=== PATIENT | female | born 1965 | race Caucasian/White ===

== ENCOUNTER → 2023-11-07 06:58 | Outpatient (REF) | payer OTHER, SELFPAY | LOC: HWRAD 06:58 | PROVIDERS: ATTENDING PHYSICIAN Family Medicine; REFERRING PHYSICIAN Internal Medicine Gastroenterology | DX: R79.89 Other specified abnormal findings of blood chemistry (principal) | CPT/HCPCS: 76700 ==

== ENCOUNTER → 2024-02-06 06:16 | Day surgery (SDC) | payer OTHER, SELFPAY | LOC: GI 06:16 | PROVIDERS: ATTENDING PHYSICIAN Internal Medicine Gastroenterology; FAMILY PHYSICIAN Family Medicine | DX: R12 Heartburn (principal); I85.00 Esophageal varices without bleeding; K31.7 Polyp of stomach and duodenum; K76.6 Portal hypertension; K31.89 Other diseases of stomach and duodenum; Z13.810 Encounter for screening for upper gastrointestinal disorder | CPT/HCPCS: 43239; 88305 ==

== ENCOUNTER 2024-05-12 15:44 | Observation (INO) | payer OTHER, SELFPAY ==
[2024-05-12 12:07] VITALS: BP 136/78
--- NOTE | 2024-05-12 12:11 | ED.GENMED ---
ED Provider Triage
<Antoine Joe PA-C - Last Filed: 05/12/24 12:12>
-
Patient seen by provider in Triage?: Seen in Triage
Attestation: A medical screening examination has been initiated by a qualified medical provider. Based on the assessment performed at this time, it has been determined that an emergent medical condition may exist and the patient has been informed
that further medical evaluation and possible additional diagnostic testing may be needed.
HPI: 59 yo female presents due to jaundice and abd distention. Hx of ETOH cirrhosis, no prior hx of ascites. Last alcoholic beverage was 16d ago. No fevers or chills. Denies dark urine or anna colored stool
GENERAL: Alert , in no apparent distress
EYE: No visual abnormalities. scleral icterus noted
NECK: Trachea midline
ENT: No visible abnormalities.
LUNGS: No acute respiratory distress
ABD: Moderately distended
NEUROLOGICAL: Alert and oriented
SKIN: Skin intact. No visible changes.
MUSCULOSKELETAL: Moving extremities normally
PSYCH: Normal and appropriate interaction.
This is a medical evaluation conducted in person to initiate diagnostic evaluation and provide initial therapeutics. Please see further documentation by the treating clinician.
History of Present Illness
<Antoine Joe PA-C - Last Filed: 05/12/24 12:12>
General
Chief Complaint: Abnormal Lab Value
Time Seen by Provider: 05/12/24 13:41
<Nilesh Michel Jr., PA-C - Last Filed: 05/12/24 15:31>
General
Source: patient
Exam Limitations: none
Nursing documentation reviewed up to this point in time: agreed with
History of Present Illness
History of Present Illness:
59-year-old female presenting to the emergency department today with concerns of yellow discoloration abnormal liver function test distended abdomen worsening over the past few weeks specifically worse over the past few days. Has noticed increasing
distention to her abdomen recently. Denies nausea vomiting change in bowel movements.
Past History
<Antoine Joe PA-C - Last Filed: 05/12/24 12:12>
Past History
ED Past Medical History: Other (Hepatitis C)
ED Past Surgical History: Gynecological and Other (Cleft palate repair)
Social History
Living: with family
Review of Systems
<Nilesh Michel Jr., PA-C - Last Filed: 05/12/24 15:31>
Review of Systems
Allergies reviewed?: Yes
All Other Systems: ROS reviewed and negative except as documented in HPI and ROS
Phy Exam
<Nilesh Michel Jr., PA-C - Last Filed: 05/12/24 15:31>
Physical Exam
Physical Exam:
GENERAL: Alert , in no apparent distress
EYE: pupils equal and reactive
NECK: Supple, no significant adenopathy.
ENT: o/p clr, mmm.
CARDIAC: Regular rate and rhythm .
LUNGS: Clear breath sounds bilaterally, no acute respiratory distress, no wheezes/rales/rhonchi
ABDOMEN: Distended abdomen with vague discomfort throughout no focal pain.
NEUROLOGICAL: Alert and oriented, no focal neuro deficits
SKIN: Warm and dry, skin intact.
MUSCULOSKELETAL: No edema, well perfused.
PSYCH: Normal and appropriate interaction.
Course
<Antoine Joe PA-C - Last Filed: 05/12/24 12:12>
Orders/Labs/Results
Orders:
Orders
05/12/24 12:10
US Abdomen Complete/Upper Urgent
Comment:
Reason For Exam: abd distention, jaundice
05/12/24 12:30
Complete Blood Count/With Diff Urgent
Prothrombin Time Urgent
05/12/24 12:40
Comprehensive Metabolic Panel Urgent
Direct Bilirubin Urgent
Lipase Urgent
05/12/24 Dinner
Regular
05/12/24 15:18
Body Fluid Albumin Routine
Fluid Source: Peritoneal (Ascites)
Body Fluid Cell Count Routine
What is the Body Fluid: peritoneal fluid
Comment: post procedure
Body Fluid LDH Routine
Fluid Source: Peritoneal (Ascites)
Body Fluid Protein Routine
Fluid Source: Peritoneal (Ascites)
Fluid Culture with Gram Stain Routine
JOSIAH Source: Peritoneal Fluid
Specimen Description:
Comment: Post Procedure
IRAD Cytology Routine
Source: Peritoneal Fluid
Clinical Impression: alcoholic cirrhosis
05/12/24 15:19
IR[facility] CONSULT Routine
Consulting Provider: Loco Garcia
Was physician already notified: Yes
Reason for Consult/Procedure: Dx/Tx paracentesis
Acknowledgement that appropriate orders are entered: Yes
05/12/24 15:21
GASTROINTESTINAL CONSULT Routine
Consulting Provider: Moiz Rucker
Was physician already notified: Yes
Reason for consult: ascites
05/12/24 15:23
Code Status As Directed
Resuscitation Status: Full Code
Bisacodyl [Dulcolax] 10 mg RECTAL [id number] PRN
Docusate W/Senna [Senokot-S] 1 tablet PO BIDPRN PRN
Polyethylene Glycol Powder [Miralax] 17 grams PO DAILYPRN PRN
Neurological Checks As Directed
Frequency: q4h
05/12/24 15:24
Activity As Directed
Activity Level: With Assistance
Vital Signs As Directed
Frequency: Per unit guidelines
DX Deep Vein Thrombosis Video Routine
05/12/24 15:27
Ondansetron HCl [Zofran] 4 mg PO DAILYPRN PRN
05/12/24 15:30
estradiol [Yuvafem] 10 mcg VAGINAL TUTH
05/12/24 18:00
Enoxaparin Sodium [Lovenox] 40 mg SC QPM
05/12/24 22:00
Atenolol [Tenormin] 25 mg PO HS
Clonazepam [Klonopin] 0.25 mg PO HS
bimatoprost [Latisse] 1 drop TOPICAL HS
05/13/24 06:00
Complete Blood Count/No Diff IN AM
Comprehensive Metabolic Panel IN AM
05/13/24 08:00
psyllium husk 1.6 grams PO DAILY
rabeprazole 20 mg PO DAILY
05/14/24 06:00
Complete Blood Count/No Diff IN AM
Comprehensive Metabolic Panel IN AM
05/15/24 06:00
Complete Blood Count/No Diff IN AM
Comprehensive Metabolic Panel IN AM
Abnormal Lab Results
05/12/24 05/12/24
12:30 12:40
RBC 3.64 L 10^6/uL
(4.20-5.40)
MCV 102.5 H fL
(81.0-99.0)
MCH 34.6 H pg
(27.0-31.0)
RDW 15.0 H %
(11.5-14.5)
MPV 10.5 H fL
(7.4-10.4)
Monocytes % 10.0 H %
(1.7-9.3)
PT 19.2 H Sec
(11.4-14.6)
BUN 4 L mg/dl
(7-17)
Glucose 119 H mg/dl
(70-99)
Calcium 8.0 L mg/dl
(8.4-10.2)
Total Bilirubin 4.8 H mg/dl
(0.2-1.3)
Direct Bilirubin 2.5 H mg/dl
(0.0-0.4)
AST 156 H U/L
(14-36)
Alkaline Phosphatase 146 H U/L
(38-126)
05/12/24 12:30
05/12/24 12:40
Vital Signs
Initial and Last Documented VS:
Initial Vital Signs
Temp Pulse Resp BP Pulse Ox
98.6 F 85 16 136/78 97
05/12/24 12:07 05/12/24 12:07 05/12/24 12:07 05/12/24 12:07 05/12/24 12:07
Last Documented Vital Signs
Temp Pulse Resp BP Pulse Ox
98.6 F 85 18 136/78 97
05/12/24 12:07 05/12/24 12:07 05/12/24 14:00 05/12/24 12:07 05/12/24 12:07
<Nilesh Michel Jr., PA-C - Last Filed: 05/12/24 15:31>
Orders/Labs/Results
Orders:
Orders
05/12/24 12:10
US Abdomen Complete/Upper Urgent
Comment:
Reason For Exam: abd distention, jaundice
05/12/24 12:30
Complete Blood Count/With Diff Urgent
Prothrombin Time Urgent
05/12/24 12:40
Comprehensive Metabolic Panel Urgent
Direct Bilirubin Urgent
Lipase Urgent
05/12/24 Dinner
Regular
05/12/24 15:18
Body Fluid Albumin Routine
Fluid Source: Peritoneal (Ascites)
Body Fluid Cell Count Routine
What is the Body Fluid: peritoneal fluid
Comment: post procedure
Body Fluid LDH Routine
Fluid Source: Peritoneal (Ascites)
Body Fluid Protein Routine
Fluid Source: Peritoneal (Ascites)
Fluid Culture with Gram Stain Routine
JOSIAH Source: Peritoneal Fluid
Specimen Description:
Comment: Post Procedure
IRAD Cytology Routine
Source: Peritoneal Fluid
Clinical Impression: alcoholic cirrhosis
05/12/24 15:19
IRAD CONSULT Routine
Consulting Provider: Loco Garcia
Was physician already notified: Yes
Reason for Consult/Procedure: Dx/Tx paracentesis
Acknowledgement that appropriate orders are entered: Yes
05/12/24 15:21
GASTROINTESTINAL CONSULT Routine
Consulting Provider: Moiz Rucker
Was physician already notified: Yes
Reason for consult: ascites
05/12/24 15:23
Code Status As Directed
Resuscitation Status: Full Code
Bisacodyl [Dulcolax] 10 mg RECTAL [id number] PRN
Docusate W/Senna [Senokot-S] 1 tablet PO BIDPRN PRN
Polyethylene Glycol Powder [Miralax] 17 grams PO DAILYPRN PRN
Neurological Checks As Directed
Frequency: q4h
05/12/24 15:24
Activity As Directed
Activity Level: With Assistance
Vital Signs As Directed
Frequency: Per unit guidelines
DX Deep Vein Thrombosis Video Routine
05/12/24 15:27
Ondansetron HCl [Zofran] 4 mg PO DAILYPRN PRN
05/12/24 15:30
estradiol [Yuvafem] 10 mcg VAGINAL TUTH
05/12/24 18:00
Enoxaparin Sodium [Lovenox] 40 mg SC QPM
05/12/24 22:00
Atenolol [Tenormin] 25 mg PO HS
Clonazepam [Klonopin] 0.25 mg PO HS
bimatoprost [Latisse] 1 drop TOPICAL HS
05/13/24 06:00
Complete Blood Count/No Diff IN AM
Comprehensive Metabolic Panel IN AM
05/13/24 08:00
psyllium husk 1.6 grams PO DAILY
rabeprazole 20 mg PO DAILY
05/14/24 06:00
Complete Blood Count/No Diff IN AM
Comprehensive Metabolic Panel IN AM
05/15/24 06:00
Complete Blood Count/No Diff IN AM
Comprehensive Metabolic Panel IN AM
Abnormal Lab Results
05/12/24 05/12/24
12:30 12:40
RBC 3.64 L 10^6/uL
(4.20-5.40)
MCV 102.5 H fL
(81.0-99.0)
MCH 34.6 H pg
(27.0-31.0)
RDW 15.0 H %
(11.5-14.5)
MPV 10.5 H fL
(7.4-10.4)
Monocytes % 10.0 H %
(1.7-9.3)
PT 19.2 H Sec
(11.4-14.6)
BUN 4 L mg/dl
(7-17)
Glucose 119 H mg/dl
(70-99)
Calcium 8.0 L mg/dl
(8.4-10.2)
Total Bilirubin 4.8 H mg/dl
(0.2-1.3)
Direct Bilirubin 2.5 H mg/dl
(0.0-0.4)
AST 156 H U/L
(14-36)
Alkaline Phosphatase 146 H U/L
(38-126)
05/12/24 12:30
05/12/24 12:40
Vital Signs
Initial and Last Documented VS:
Initial Vital Signs
Temp Pulse Resp BP Pulse Ox
98.6 F 85 16 136/78 97
05/12/24 12:07 05/12/24 12:07 05/12/24 12:07 05/12/24 12:07 05/12/24 12:07
Last Documented Vital Signs
Temp Pulse Resp BP Pulse Ox
98.6 F 85 18 136/78 97
05/12/24 12:07 05/12/24 12:07 05/12/24 14:00 05/12/24 12:07 05/12/24 12:07
<Nilesh Michel Jr., PA-C - Last Filed: 05/12/24 15:31>
MDM/Problems Addressed
MDM/Problems Addressed:
59-year-old female presenting to the emergency department today with concerns of potential alcoholic hepatitis with abnormal liver function test. Also worsening distended abdomen. Ultrasound showing cirrhosis but no evidence of biliary ductal
dilatation. Patient with potential moderate ascites as well. Plan to admit for IR drainage otherwise stable here.
<Nilesh Michel Jr., PA-C - Last Filed: 05/12/24 15:31>
*Critical Care Note
Total Time (30-74mins, 75-104mins- exclusive of procedures): Not Applicable
ED Attending Note
<Antoine Joe PA-C - Last Filed: 05/12/24 12:12>
-
Portions of this chart may have been created with voice recognition software.� Occasional wrong word or��sound alike� substitutions may have occurred due to the inherent limitations of voice recognition software.
Discharge Plan
Departure
Patient Disposition: Admit
Date of Disposition: 05/12/24
Time of Disposition: 15:30
Admit to: Med/Surg
Admit to doctor: Evangelina
Presentation/result/management discussed w/ accepting MD/DO: Hospitalist
Condition: Good
Covid-19: Not Applicable
Discharge Problem:
Ascites, Acute alcoholic liver disease
Prescriptions:
No Action
rabeprazole 20 mg tablet,delayed release (DR/EC)
20 mg PO DAILY
ondansetron HCl 4 mg tablet
4 mg PO DAILYPRN PRN (Reason: nausea/vomiting)
clonazepam 0.5 mg tablet
0.25 mg PO HS
atenolol 50 mg tablet
25 mg PO HS
bimatoprost [Latisse] 0.03 % drops with applicator
1 drp topical HS
estradiol [Yuvafem] 10 mcg tablet
10 mcg VAGINAL TUTH
psyllium husk 0.4 gram Capsule
1.6 g PO DAILY
Referrals:
Chet Vaca MD [Family Provider] -
Interventions
Interventions:
*Risk Screen - Suicide Last Done: 05/12/24 12:07
*General Assessment Last Done: 05/12/24 12:07
*Neglect/Abuse Screening Last Done: 05/12/24 12:07
*ED COVID-19 Vaccine History Last Done: 05/12/24 14:10
Discharge Date and Time
Print Language: TUVALUAN
[2024-05-12 12:58] LABS: % Basophils 1.8 % (0-2); % Immature Granulocytes 0.2 % (0-0.5); % Lymphocytes 26.9 % (20.5-51.1); % Neutrophils 59.1 % (42.2-75.2); Absolute Basophils 0.1 10^3/uL (0-0.2); Absolute Eosinophils 0.1 10^3/uL (0-0.7); Absolute Lymphocytes 1.4 10^3/uL (1.2-3.4); Absolute Monocytes 0.5 10^3/uL (0.1-0.6); Hematocrit 37.3 % (37.0-47.0); Hemoglobin 12.6 g/dL (12.0-16.0); Mean Corp Hgb Conc. 33.8 g/dL (33.0-37.0); Mean Corpuscular Hgb 34.6 pg (27.0-31.0); Mean Corpuscular Volume 102.5 fL (81.0-99.0); Mean Platelet Volume 10.5 fL (7.4-10.4); Nucleated Red Blood Cells % 0 %; Platelet Count 149 10^3/uL (130-400); Red Blood Cell Count 3.64 10^6/uL (4.20-5.40)
[2024-05-12 13:02] LABS: INR 1.59; PT 19.2 Sec (11.4-14.6)
[2024-05-12 13:09] LABS: ALT (SGPT) 25 U/L (0-35); AST (SGOT) 156 U/L (14-36); Albumin 3.6 g/dl (3.5-5.0); Alkaline Phosphatase 146 U/L (38-126); Blood Urea Nitrogen 4 mg/dl (7-17); Carbon Dioxide 25 mmol/L (22-30); Chloride 100 mmol/L (98-107); Direct Bilirubin 2.5 mg/dl (0.0-0.4); Glucose 119 mg/dl (70-99); Lipase 135 U/L (23-300); Potassium 3.5 mmol/L (3.5-5.1); Sodium 135 mmol/L (135-145); Total Bilirubin 4.8 mg/dl (0.2-1.3); Total Protein 7.6 g/dl (6.3-8.2); eGFR > 60.00
[2024-05-12 14:08] VITALS: BMI 30.1
--- NOTE | 2024-05-12 15:36 | W.PN.UPDATE ---
Update Note
Progress Note Update
I personally performed a history and physical exam of the patient and discussed management with the resident. I reviewed the resident's note and agree with the documented findings and plan of care HPI/CC.
59 y/o F who has developed ascites over the last 16 days and was instructed to come to the ER by he rPCP.
Gen: NAD, AAOx3.
Eyes: EOMI, PERRLA, mild scleral icterus.
Neck: supple.
CV: RRR, +S1/S2, no m/r/g.
Resp: CTAB, no rales, wheezes, or rhonchi.
Abd: +BS, soft, moderate distention with ascites, ND
Skin: No rashes. 1+ B/L LE edema
Neuro: CN 2-12 intact, non-focal. No asterixis.
Psych: Normal mood and affect.
Lab Results
05/12/24 05/12/24
12:30 12:40
WBC 5.0
RBC 3.64 L
Hgb 12.6
Hct 37.3
MCV 102.5 H
MCH 34.6 H
MCHC 33.8
RDW 15.0 H
Plt Count 149
MPV 10.5 H
Abs Immat Gran (auto) 0.0
Absolute Neuts (auto) 3.0
Absolute Lymphs (auto) 1.4
Absolute Monos (auto) 0.5
Absolute Eos (auto) 0.1
Absolute Basos (auto) 0.1
Immature Gran % 0.2
Neutrophils % 59.1
Lymphocytes % 26.9
Monocytes % 10.0 H
Eosinophils % 2.0
Basophils % 1.8
Nucleated RBC % 0
PT 19.2 H
INR 1.59
Sodium 135
Potassium 3.5
Chloride 100
Carbon Dioxide 25
BUN 4 L
Creatinine 0.6
eGFR > 60.00
Glucose 119 H
Calcium 8.0 L
Total Bilirubin 4.8 H
Direct Bilirubin 2.5 H
AST 156 H
ALT 25
Alkaline Phosphatase 146 H
Total Protein 7.6
Albumin 3.6
Lipase 135
Abd U/S: Coarsened hepatic echotexture minor nodular surface, pattern of which is at least suggestive of hepatic cirrhosis. No findings to suggest biliary tract dilatation. Small to moderate volume ascites.
Acute decompensated alcoholic cirrhosis:
-The patient is afebrile and hemodynamically stable. No evidence of hepatic encephalopathy at this time.
-Although this can be further managed in the outpatient setting a request was placed to admit the patient. I have personally called interventional radiology regarding the orders I placed for diagnostic and therapeutic paracentesis. They stated
that they may not be able to do the paracentesis today. Depending on the amount of volume removed during paracentesis we will give the appropriate amount of albumin. Send fluid for cytology, culture and Gram stain, cell count, etc.
-Will consult GI as the patient is known to Dr. Tapia.
-cont home atenolol and PPI
-will discuss starting pt on aldactone and Lasix
-last drink was 16 days [employer]. Encourage alcohol cessation. Will give thiamine/folate. At this time risk for acute alcohol withdrawal is exceedingly low.
FULL/Lovenox/MS/OBS
--- NOTE | 2024-05-12 15:54 | HPS.HSE ---
Family Physician
-
Family Physician: Chet Vaca
Chief Complaint
-
Jaundice
History of Present Illness
This is a 59-year-old female with past medical history of alcohol abuse, hepatitis C, osteoarthritis, GERD who presents to ER for mild abdominal discomfort as well as jaundice. Patient reports mild distention of abdomen worsening over the past
few weeks. In addition a neighbor noticed she was turning yellow and informed her to get blood work done. Lab work revealed abnormal liver function, hence was advised to come to the ED for evaluation. Pertinent to the patient's history, patient
with a history of alcohol abuse. States she drank 52 ounces of alcohol every day for the past 30 years, with this number reduced in the past 1 year. Her last drink was 16 days ago. On presentation to ED, vitals blood pressure 136/78, pulse 85,
respiratory rate 18, afebrile, O2 sat 97% on room air. AST 156, ALT 25, ALP 146, T. bili 4.8. Evaluation with abdominal ultrasound showed small to moderate volume ascites and Coarsened hepatic echotexture minor nodular surface, pattern of which is
at least suggestive of hepatic cirrhosis. At the time of my examination, patient denies acute complaints of chest pain, abdominal pain, shortness of breath.
Medical History
Past Medical History
Past Medical History: Reports Other (Hepatitis C, GERD, osteoarthritis, chronic alcohol use, cleft palate, hypertension)
Past Surgical History: Reports Other (Tubular ligation, left shoulder manipulation 04/27/2020)
Social History
Tobacco: Former Smoker
Alcohol: Occasional
Drug: None
Living: With Family
Family History
Family History: Not pertinent
Allergies / Home Medications
Allergies reflects when Allergies were last updated in [employer].
Home Medications with original date entered in [employer]
Allergy/Medication List:
Allergies
Allergy/AdvReac Type Severity Reaction Status Date / Time
succinylcholine Allergy Unknown Verified 05/12/24 12:12
Home Medications
atenolol 50 mg tablet 25 mg PO HS 05/12/24
bimatoprost 0.03 % drops with applicator, eyelash base (Latisse) 1 drp topical HS 05/12/24
clonazepam 0.5 mg tablet 0.25 mg PO HS 05/12/24
estradiol 10 mcg vaginal tablet (Yuvafem) 10 mcg vaginal TUTH 05/12/24
ondansetron HCl 4 mg tablet 4 mg PO DAILYPRN PRN nausea/vomiting 05/12/24
psyllium husk 0.4 gram capsule 1.6 g PO DAILY 05/12/24
rabeprazole 20 mg tablet,delayed release 20 mg PO DAILY 05/12/24
Review of Systems
-
History Source: Patient
A 12 point ROS was completed and negative except as noted: Yes
Constitutional: Reports See HPI
Respiratory: Reports See HPI
Cardiac: Reports See HPI
Abdomen/GI: Reports See HPI
: Reports See HPI
Physical Exam
Vital Signs
Vital Signs
Temp Pulse Resp BP Pulse Ox
98.6 F 85 18 136/78 97
05/12/24 12:07 05/12/24 12:07 05/12/24 14:00 05/12/24 12:07 05/12/24 12:07
Physical Exam
General: No Apparent Distress and Comfortable
HEENT: Other (scleral icterus)
Respiratory: Clear; No Wheezes or Rales
Cardiac: S1/S2 and Regular Rhythm
GI: Soft and Distended
Musculoskeletal: Edema, Left Lower Extremity and Edema, Right Lower Extremity
Neuro: Awake, Alert, Oriented and AO x 3
Psych: Calm
Laboratory Results
-
05/12/24 12:30
05/12/24 12:40
Laboratory Results
PT 19.2 Sec (11.4-14.6) H 05/12/24 12:30
INR 1.59 05/12/24 12:30
Total Bilirubin 4.8 mg/dl (0.2-1.3) H 05/12/24 12:40
AST 156 U/L (14-36) H 05/12/24 12:40
ALT 25 U/L (0-35) 05/12/24 12:40
Alkaline Phosphatase 146 U/L (38-126) H 05/12/24 12:40
Lipase 135 U/L (23-300) 05/12/24 12:40
Impression/Plan
-
Assessment/plan
#Acute decompensated alcoholic cirrhosis
-Ultrasound with small to moderate ascites present
-IR consulted for diagnostic and therapeutic paracentesis
-Check cytology, culture, Gram stain, cell count
-Albumin after paracentesis
-GI consult
-Consider starting on Lasix and Aldactone
-Follow LFTs
-No evidence of hepatic encephalopathy
#Alcohol abuse
-Patient states last drink was 16 days ago
-Thiamine/folate
#Essential hypertension
-Continue atenolol
#GERD
-Continue PPI
#Hx of hepatitis C
CODE STATUS full code
DVT prophylaxis Lovenox
[2024-05-12 16:21] VITALS: BMI 28.9
[2024-05-12 16:23] VITALS: BP 127/68
--- NOTE | 2024-05-12 17:03 | PTCARENOTE ---
Received pt from ER via stretcher, accompanied by ER staff. Pt AAO x3, MEJIAS well, ambulatory to bed, no c/o weakness/dizziness. VSS. Pt has +2 edema lower legs/feet. On room air- pulse ox 98%, no SOB noted. Abd large,soft, BS (+); loud. No c/o
abd discomfort. pt to be on regular diet. Pt DTV; states will void in BR. Afebrile; sl jaundiced, skin intact. Resting comfortably in bed, no c/o at present. Will continue to monitor.
--- NOTE | 2024-05-12 18:01 | CON.GI ---
Consultation
-
Date/Time Consultation Requested: 05/12/24
Date/Time Consultation Performed: 05/12/24
Requesting Provider:
Performing Provider:
Reason for Consultation: ascites, jaundice
Medical History
Chief Complaint / HPI
Chief Complaint: ascites, jaundice
History of Present Illness:
This is a 59-year-old female with past medical history of hypertension, GERD, IBS, colon polyps, cleft palate, alcohol abuse, ETOH cirrhosis, DINORAH who was seeing Dr. Sepulveda and had seen me after his senior living who recently had been diagnosed with
cirrhosis from a FibroScan and had an ultrasound in November which did not reveal any ascites who recently about 2 weeks ago noticed that her abdomen was getting more distended and also she had called 2 days ago with new onset of jaundice and she was
also seen by her PCP and was recommended to come into the emergency room. She denies any fevers or chills no nausea or vomiting. she says that she had altered her diet and her abdominal distention has actually decreased over the past few days.
She does have a history of heavy chronic alcohol use and was drinking close to 2 bottles of champagne daily and had cut back to 1 bottle of champagne over the past couple of months she says that she finally stopped drinking about 2 weeks ago. she
does have constipation and uses MiraLAX. For her reflux she is on rabeprazole with good control of symptoms she denies any dysphagia. Her last colonoscopy was in March and she had tubular adenomas and needs repeat colonoscopy in 2025 her last
endoscopy was in February and it showed nonbleeding grade 1 esophageal varices and portal gastropathy currently denies any melena or rectal bleeding.
Past Medical History
Past Medical History: Other (hypertension, GERD, IBS, colon polyps, cleft palate, alcohol abuse, ETOH cirrhosis, DINORAH)
Past Surgical History: Other (Tubal ligation, left shoulder manipulation)
Social History
Tobacco: Former Smoker
Alcohol: Chronic Alcoholic ( she was drinking 2 bottles of champagne almost daily and over the past couple of months had cut back to 1 bottle of champagne she says that her last drink of alcohol though was 16 days ago)
Family History
Family History: CAD (father and mother) and Other
Allergies / Home Medications
Allergy/AdvReac Type Severity Reaction Status Date / Time
succinylcholine Allergy Unknown Verified 05/12/24 16:24
�Medication �Instructions �Recorded
atenolol 50 mg tablet 25 mg PO HS 05/12/24
bimatoprost 0.03 % drops with 1 drp topical HS 05/12/24
applicator, eyelash base (Latisse)
clonazepam 0.5 mg tablet 0.25 mg PO HS 05/12/24
estradiol 10 mcg vaginal tablet 10 mcg vaginal TUTH 05/12/24
(Yuvafem)
ondansetron HCl 4 mg tablet 4 mg PO DAILYPRN PRN 05/12/24
nausea/vomiting
psyllium husk 0.4 gram capsule 1.6 g PO DAILY 05/12/24
rabeprazole 20 mg tablet,delayed 20 mg PO DAILY 05/12/24
release
Review of Systems
-
All other systems: A 12 pt ROS was Negative except as stated above in HPI
Vital Signs
Temp Pulse Resp BP Pulse Ox
97.7 F 79 18 127/68 98
05/12/24 16:23 05/12/24 16:23 05/12/24 16:23 05/12/24 16:23 05/12/24 17:01
Physical Exam
Exam
General: No Apparent Distress
HEENT: Normocephalic
Respiratory: Clear
Cardiac: S1/S2
GI: Soft and Other (mildly distended, non tender, good bowel sounds)
Skin: Warm
Neuro: Awake, Alert and Oriented
Results
WBC 5.0 10^3/uL (4.8-10.8) 05/12/24 12:30
Hgb 12.6 g/dL (12.0-16.0) 05/12/24 12:30
Hct 37.3 % (37.0-47.0) 05/12/24 12:30
MCV 102.5 fL (81.0-99.0) H 05/12/24 12:30
Plt Count 149 10^3/uL (130-400) 05/12/24 12:30
Absolute Neuts (auto) 3.0 10^3/uL (1.4-6.5) 05/12/24 12:30
PT 19.2 Sec (11.4-14.6) H 05/12/24 12:30
INR 1.59 05/12/24 12:30
Sodium 135 mmol/L (135-145) 05/12/24 12:40
Potassium 3.5 mmol/L (3.5-5.1) 05/12/24 12:40
Chloride 100 mmol/L (98-107) 05/12/24 12:40
Carbon Dioxide 25 mmol/L (22-30) 05/12/24 12:40
BUN 4 mg/dl (7-17) L 05/12/24 12:40
Creatinine 0.6 mg/dL (0.6-1.0) 05/12/24 12:40
Calcium 8.0 mg/dl (8.4-10.2) L 05/12/24 12:40
Total Bilirubin 4.8 mg/dl (0.2-1.3) H 05/12/24 12:40
AST 156 U/L (14-36) H 05/12/24 12:40
ALT 25 U/L (0-35) 05/12/24 12:40
Alkaline Phosphatase 146 U/L (38-126) H 05/12/24 12:40
Lipase 135 U/L (23-300) 05/12/24 12:40
Diagnostic Image Results:
05/12/24 US IMPRESSION: Coarsened hepatic echotexture minor nodular surface, pattern of which is at least suggestive of hepatic cirrhosis. No findings to suggest biliary tract dilatation. Small to moderate volume ascites.
Prior GI Procedures:
EGD:
02/06/24 Impression: - Grade I esophageal varices with no bleeding and no
stigmata of recent bleeding.
- Multiple gastric polyps. Biopsied � fundic gland polyps
- Portal hypertensive gastropathy.
- Normal examined duodenum.
Colonoscopy:
03/20/2023 Impression: - Diverticulosis in the sigmoid colon.
- Two 3 to 5 mm polyps in the rectum, removed with a
cold snare. Resected and retrieved.- TA�s
- One 8 mm polyp in the ascending colon, removed with
a cold snare. Resected and retrieved.- TA
- One 6 mm polyp in the proximal ascending colon,
removed with a cold snare. Resected and retrieved.(polyp tissue not retrieved)
- One 6 mm polyp in the transverse colon, removed with
a cold snare. Resected and retrieved.- TA
- Internal hemorrhoids.
Assessment / Plan
-
1. New onset of ascites with known recently diagnosed alcohol cirrhosis. Discussed with Dr. Hutchinson order already placed for IR guided paracenteses small to moderate amount of ascites noted on the ultrasound currently afebrile doubt SBP and based on
volume removed will give albumin if needed. Agree with getting cell count, protein, albumin and cytology. Will also start on Lasix and Aldactone and monitor electrolytes and blood pressure on it. no hepatic encephalopathy currently. Last EGD
showed grade 1 nonbleeding esophageal varices.
2. Abnormal LFTs most likely related to alcohol liver disease she says that her last drink of alcohol was about 16 days ago strongly reinforced importance of continued alcohol abstinence continue to trend LFTs. Her DF is 32.4 will hold off on
prednisolone for now.
3. GERD continue PPI she is on rabeprazole as outpatient
4. constipation continue MiraLAX
Data Reviewed
-
Ultrasound: Report Reviewed by me
Old Records: Reviewed
-
-
Thank you for consultation and allowing me to participate in the patient's care. Please call the director of home economics GI physician during the after hours with any questions or concerns.
[2024-05-12] MEDS: TENORMIN 25 MG PO (20:07)
[2024-05-12] MEDS: KLONOPIN 0.25 MG PO (20:07)
[2024-05-12 23:32] VITALS: BP 130/70
--- NOTE | 2024-05-13 06:23 | W.PN.GI.CBS2 ---
Addendum entered and electronically signed by NESTOR Levy 05/13/24 08:25:
message sent to office to arrange GI follow up and left lab slips for 1-2 week repeat labs.
Original Note:
Today's Communication / Plan
-
Assessment and plan for details.
Assessment / Plan
-
1. New onset of ascites with known recently diagnosed alcohol cirrhosis. Await IR assessment for possible paracentesis today. Diuretics started, discussed salt restriction. Will continue to trend labs as an outpatient.
2. Abnormal LFTs most likely related to alcohol liver disease she says that her last drink of alcohol was about 16 days ago strongly reinforced importance of continued alcohol abstinence continue to trend LFTs. Will await morning labs, though if
not significantly were is okay to DC from a GI standpoint.
3. GERD continue PPI she is on rabeprazole as outpatient
4. constipation: continue MiraLAX, likely adding some to her distention.
Subjective
Subjective
Date of Service: May 13, 2024
Patient feel okay, still with some abdominal distention, no nausea or morning. No bowel movements for the past couple of days.
Objective
Data Reviewed
Laboratory Data:
Laboratory Results
PT 19.2 Sec (11.4-14.6) H 05/12/24 12:30
INR 1.59 05/12/24 12:30
Total Bilirubin 4.8 mg/dl (0.2-1.3) H 05/12/24 12:40
AST 156 U/L (14-36) H 05/12/24 12:40
ALT 25 U/L (0-35) 05/12/24 12:40
Alkaline Phosphatase 146 U/L (38-126) H 05/12/24 12:40
Lipase 135 U/L (23-300) 05/12/24 12:40
Vital Signs and I&O:
Vital Signs
Temp Pulse Resp BP Pulse Ox
98.6 F 79 17 130/70 96
05/12/24 23:32 05/12/24 23:32 05/12/24 23:32 05/12/24 23:32 05/12/24 23:32
I&O
05/11/24 05/12/24 05/13/24
06:59 06:59 06:59
Intake Total 300 / 300
Output Total 0 / 0
Balance 300 / 300
Physical Exam
Physical Exam
General: NAD icteric
Abdomen: normal bowel sounds, mildly distended though soft, no tenderness, no masses or bruits, probable mild ascites
[2024-05-13 06:58] LABS: Hematocrit 32.6 % (37.0-47.0); Hemoglobin 11.3 g/dL (12.0-16.0); Mean Corp Hgb Conc. 34.7 g/dL (33.0-37.0); Mean Corpuscular Volume 100.9 fL (81.0-99.0); Mean Platelet Volume 10.2 fL (7.4-10.4); Platelet Count 132 10^3/uL (130-400); Red Blood Cell Count 3.23 10^6/uL (4.20-5.40); White Blood Cell Count 4.7 10^3/uL (4.8-10.8)
--- NOTE | 2024-05-13 07:17 | W.PN.HOSP.TC ---
Today's Communication/Plan
-
Awaiting diagnostic and therapeutic paracentesis
Assessment / Plan
Assessment / Plan
Assessment/plan
#Acute decompensated alcoholic cirrhosis
-Ultrasound with small to moderate ascites present
-IR consulted for diagnostic and therapeutic paracentesis
-Check cytology, culture, Gram stain, cell count
-Albumin after paracentesis
-GI input appreciated
-Initiated on Lasix and Aldactone
-Trend LFTs
-No evidence of hepatic encephalopathy
#Alcohol abuse
-Patient states last drink was 16 days ago
-Thiamine/folate
#Essential hypertension
-Continue atenolol
#GERD
-Continue PPI
#Hx of hepatitis C
CODE STATUS full code
DVT prophylaxis Lovenox
Anticipated Discharge: Within 24 hours
Subjective/Interval History
-
Date of Service: May 13, 2024
Objective Data
-
Labs:
Laboratory Results
05/13/24 05/13/24
05:52 05:53
WBC 4.7 L
Hgb 11.3 L
Hct 32.6 L
Plt Count 132
Sodium Pending
Potassium Pending
Chloride Pending
Carbon Dioxide Pending
BUN Pending
Creatinine Pending
Glucose Pending
Calcium Pending
Total Bilirubin Pending
AST Pending
ALT Pending
Alkaline Phosphatase Pending
Vital Signs:
Vital Signs
Temp Pulse Resp BP Pulse Ox
98.6 F 79 17 130/70 96
05/12/24 23:32 05/12/24 23:32 05/12/24 23:32 05/12/24 23:32 05/12/24 23:32
I&O
05/12/24 05/13/24 05/14/24
06:59 06:59 06:59
Intake Total 780 / 780
Output Total 0 / 0
Balance 780 / 780
Review of Systems
-
All other systems: Reviewed and negative (Except as documented)
Physical Exam
-
General: No Apparent Distress
Respiratory: Clear to Auscultation
Cardiac: Regular Rhythm and S1/S2
GI: Soft, Nontender, Normal Bowel Sounds and Distended
Musculoskeletal: Edema, Right Lower Extrem and Edema, Left Lower Extrem
Neuro: Awake, Alert, Oriented and AO x 3
Psych: Calm
[2024-05-13 07:24] LABS: ALT (SGPT) 20 U/L (0-35); AST (SGOT) 110 U/L (14-36); Albumin 2.5 g/dl (3.5-5.0); Alkaline Phosphatase 131 U/L (38-126); Blood Urea Nitrogen 3 mg/dl (7-17); Calcium 7.9 mg/dl (8.4-10.2); Carbon Dioxide 26 mmol/L (22-30); Chloride 103 mmol/L (98-107); Estimated Creatinine Clearance 85 ml/min; Glucose 95 mg/dl (70-99); Potassium 3.5 mmol/L (3.5-5.1); Sodium 137 mmol/L (135-145); Total Bilirubin 4.2 mg/dl (0.2-1.3); Total Protein 5.9 g/dl (6.3-8.2); eGFR > 60.00
[2024-05-13 09:10] VITALS: BP 126/67; BP 97/62; BP_SYST 77
[2024-05-13 09:36] VITALS: BP 118/66; BP_SYST 70
[2024-05-13 09:48] VITALS: BP 118/66
--- NOTE | 2024-05-13 10:08 | W.DCSUMMARY ---
Discharge Summary
Discharge Data
Date of Admission: 05/12/24
Date of Discharge: 05/13/24
-
Pending Results: Yes
Additional Pending Results:
Body fluid analysis s/p paracentesis
Hospital Course
This is a 59-year-old female with past medical history of alcohol abuse, hepatitis C, osteoarthritis, GERD who presented to ER 05/13/2024 complaining of abdominal distention. Patient was seeing gastroenterology as an outpatient and was diagnosed
with cirrhosis from a FibroScan. She presented to ED complaining of distention and abnormal liver function tests on lab work. On presentation, AST 156, ALT 25, ALP 146, T. bili 4.8. Evaluation with an abdominal ultrasound showed small to
moderate volume ascites and Coarsened hepatic echotexture minor nodular surface, pattern of which is at least suggestive of hepatic cirrhosis. Accounts Payable Manager was consulted and patient was started on Lasix and Aldactone. Interventional
radiology was consulted for diagnostic and therapeutic paracentesis. Paracentesis was done on the day of discharge 05/13 with fluid studies pending. 700 cc of clear yellow ascitic fluid was evacuated. Overall patient had no acute complaints.
Patient is afebrile, hemodynamically stable. There was no evidence of hepatic encephalopathy throughout the course of hospital stay. Patient can be managed in outpatient setting and will be discharged today to follow-up with GI outpatient.
Discharge Plan
-
Patient Disposition: Home (Routine Discharge)
Discharge Diagnosis/Procedures: Acute decompensated alcohol cirrhosis
New onset ascites s/p paracentesis 05/13
Condition: Fair
Diet: Low Sodium
Driving Restrictions: As prior to admission
Blood Work: repeat labs in 1-2 weeks -- call Dr. Tapia to review results see slips on chart
Referrals:
Chet Vaca MD [Family Provider] - in less than 1 week
Wilda Tapia MD [Active] - (call to arrange 4-6 week follow up )
Prescriptions:
New
furosemide 20 mg Tablet
20 mg PO DAILY Qty: 30 0RF
spironolactone 50 mg Tablet
50 mg PO DAILY Qty: 30 0RF
Continued
rabeprazole 20 mg tablet,delayed release (DR/EC)
20 mg PO DAILY
ondansetron HCl 4 mg tablet
4 mg PO DAILYPRN PRN (Reason: nausea/vomiting)
Patient Comments:
last dose 'a couple of days ago'
clonazepam 0.5 mg tablet
0.25 mg PO HS
atenolol 50 mg tablet
25 mg PO HS
bimatoprost [Latisse] 0.03 % drops with applicator
1 drp topical HS
estradiol [Yuvafem] 10 mcg tablet
10 mcg VAGINAL TUTH
psyllium husk 0.4 gram Capsule
1.6 g PO DAILY
Discharge Orders:
Discharge Patient (As Directed); Ordered 05/13/24
Ordered By: Duane Norton
Discharge Date and Time
Print Language: CITIZEN OF [place]
[2024-05-13] MEDS: ALDACTONE 50 MG PO (10:17)
[2024-05-13] MEDS: LASIX 20 MG PO (10:17)
[2024-05-13] MEDS: PROTONIX 40 MG PO (10:17)
[2024-05-13 10:18] VITALS: BP 138/70
--- NOTE | 2024-05-13 10:26 | W.PN.UPDATE ---
Update Note
Progress Note Update
I saw and evaluated the patient. I reviewed the resident�s note and agree with findings and plan as documented in the resident�s note.
No new complaints.
Gen: NAD, AAOx3.
Eyes: EOMI, PERRLA, mild scleral icterus.
Neck: supple.
CV: remains RRR, +S1/S2, no m/r/g.
Resp: CTAB, no rales, wheezes, or rhonchi.
Abd: +BS, soft, minimal distention with ascites, ND
Skin: No rashes.
Neuro: CN 2-12 intact, non-focal. No asterixis.
Psych: Normal mood and affect.
Abd U/S: Coarsened hepatic echotexture minor nodular surface, pattern of which is at least suggestive of hepatic cirrhosis. No findings to suggest biliary tract dilatation. Small to moderate volume ascites.
Acute decompensated alcoholic cirrhosis:
-The patient was afebrile and hemodynamically stable on admission. She had, and remains to have, no evidence of hepatic encephalopathy.
-s/p Dx/Tx paracentesis, 700cc, no SBP.
-started on Lasix/aldactone
-seen by GI, outpt f/u, discussed with GI
-cont home atenolol and PPI
-last drink was 16 days PMP. Encourage alcohol cessation. Will give thiamine/folate. At this time risk for acute alcohol withdrawal is exceedingly low.
-Patient's hospitalization ultimately was an outpatient workup. She is medically stable for discharge.
FULL/Lovenox/MS/OBS
[2024-05-13 10:44] LABS: Body Fluid Mononuclear 87.8 %; Body Fluid Polymorphonuclear 12.2 %; Body Fluid WBC 304 /CUMM
[2024-05-13 10:48] LABS: Body Fluid Second Tech ASW
[2024-05-13] MEDS: VITAMIN B1 100 MG PO (12:14)
[2024-05-13] MEDS: FOLVITE 1 MG PO (12:14)
[2024-05-13 15:00] LABS: Body Fluid Albumin < 1.0 g/dl; Body Fluid Protein < 2.0 g/dl
[2024-05-13 15:15] LABS: Body Fluid LDH < 90 U/L
== END 2024-05-13 12:45 | disposition home or self-care (01) ==
LOC: 4 EAST ACU 15:44
PROVIDERS: Physician Assistant; Student in an Organized Health Care Education/Training Program; ADMITTING PHYSICIAN Internal Medicine; EMERGENCY PHYSICIAN Emergency Medicine; FAMILY PHYSICIAN Family Medicine; OTHER PHYSICIAN Internal Medicine Gastroenterology
DX: K70.31 Alcoholic cirrhosis of liver with ascites (principal); K70.11 Alcoholic hepatitis with ascites; F10.10 Alcohol abuse, uncomplicated; R79.89 Other specified abnormal findings of blood chemistry; R60.0 Localized edema; I10 Essential (primary) hypertension; K21.9 Gastro-esophageal reflux disease without esophagitis; G47.33 Obstructive sleep apnea (adult) (pediatric); K58.9 Irritable bowel syndrome, unspecified; K31.7 Polyp of stomach and duodenum; K31.89 Other diseases of stomach and duodenum; K76.6 Portal hypertension; K64.8 Other hemorrhoids; K57.30 Diverticulosis of large intestine without perforation or abscess without bleeding; M19.90 Unspecified osteoarthritis, unspecified site; Z86.19 Personal history of other infectious and parasitic diseases; Z87.891 Personal history of nicotine dependence; Z88.8 Allergy status to other drugs, medicaments and biological substances; Z86.0100 Personal history of colon polyps, unspecified; Z82.49 Family history of ischemic heart disease and other diseases of the circulatory system; Z98.51 Tubal ligation status
CPT/HCPCS: 88305; 49083; 76700; 80053; 82042; 82248; 83615; 83690; 84157; 85025; 85027; 85610; 87015; 87070; 87205; 88112; 89051; 99285; G0378

== ENCOUNTER → 2024-08-11 11:32 | Outpatient (REF) | payer OTHER, SELFPAY | LOC: WDC 11:32 | PROVIDERS: ATTENDING PHYSICIAN Nurse Practitioner Adult Health; FAMILY PHYSICIAN Family Medicine | DX: N64.4 Mastodynia (principal) | CPT/HCPCS: 77062; 77066 ==

== ENCOUNTER → 2024-09-01 09:43 | Outpatient (REF) | payer OTHER, SELFPAY | LOC: WDC 09:43 | PROVIDERS: ATTENDING PHYSICIAN Nurse Practitioner Adult Health; FAMILY PHYSICIAN Family Medicine | DX: R92.8 Other abnormal and inconclusive findings on diagnostic imaging of breast (principal) | CPT/HCPCS: 76642 ==

== ENCOUNTER → 2024-10-28 06:33 | Outpatient (REF) | payer OTHER, SELFPAY | LOC: HWRAD 06:33 | PROVIDERS: ATTENDING PHYSICIAN Internal Medicine Gastroenterology; FAMILY PHYSICIAN Family Medicine | DX: K70.31 Alcoholic cirrhosis of liver with ascites (principal) | CPT/HCPCS: 76700 ==

== ENCOUNTER → 2024-12-18 08:28 | Outpatient (REF) | payer OTHER, SELFPAY | LOC: RAD 08:28 | PROVIDERS: ATTENDING PHYSICIAN Internal Medicine Transplant Hepatology; FAMILY PHYSICIAN Family Medicine; OTHER PHYSICIAN Internal Medicine Gastroenterology | DX: M85.80 Other specified disorders of bone density and structure, unspecified site (principal) | CPT/HCPCS: 77080 ==

== ENCOUNTER → 2025-02-08 12:25 | Outpatient (REF) | payer OTHER, SELFPAY | LOC: PAVMRI 12:25 | PROVIDERS: ATTENDING PHYSICIAN Internal Medicine Transplant Hepatology; FAMILY PHYSICIAN Family Medicine | DX: K70.31 Alcoholic cirrhosis of liver with ascites (principal) | CPT/HCPCS: 74183; A9581 ==